=== PATIENT | female | born 1980 | race Two or more races ===

== ENCOUNTER 2019-02-21 06:13 | Day surgery (SDC) | payer OTHER ==
[2019-02-21] VITALS (12 sets, daily range): BP systolic 101–140; BP diastolic 48–71
[~2019-02-21] VITALS: Ht 175.3 cm; Wt 72.5 kg
[2019-02-21] MEDS ORDERED: NKM (06:52)
[2019-02-21] MEDS ORDERED: ceFAZolin sod 1 GM in NS 55 ML IVPB ONE (07:00)
[2019-02-21] MEDS ORDERED: Iothalamate Meglumine 60% 30ML INJ ONE (07:13)
[2019-02-21 07:14] LABS: BASOPHILS % (AUTO) 1.3 % (0.0-2.0); EOSINOPHILS % (AUTO) 2.8 % (0.0-3.0); HEMATOCRIT 44.8 % (37.0-47.0); HEMOGLOBIN 14.9 G/DL (12.0-16.0); LYMPHOCYTES % (AUTO) 27.3 % (20.0-45.0); MEAN CORPUSCULAR VOLUME 86 FL (80-99); MONOCYTES % (AUTO) 9.8 % (1.0-10.0); NEUTROPHILS % (AUTO) 58.9 % (45.0-75.0); PLATELET COUNT 214 K/UL (150-450); RED BLOOD COUNT 5.24 M/UL (4.20-5.40); RED CELL DISTRIBUTION WIDTH 11.9 % (11.6-14.8); WHITE BLOOD COUNT 4.7 K/UL (4.8-10.8)
[2019-02-21] MEDS ORDERED: fentaNYL 100 mcg/2 mL IV ONE (07:20)
[2019-02-21] MEDS ORDERED: Midazolam 2mg/2ml Inj ONE (07:20)
[2019-02-21] MEDS ORDERED: Lidocaine 1% MPF 10mg/ml 5ml ONE (07:21)
[2019-02-21] MEDS ORDERED: Ketorolac 30mg Inj ONE (07:21)
[2019-02-21] MEDS ORDERED: Propofol 200mg/20ml IV ONE (07:21)
[2019-02-21 07:30] LABS: ANION GAP 10 mmol/L (5-15); BLOOD UREA NITROGEN 18 mg/dL (7-18); CALCIUM 9.6 MG/DL (8.5-10.1); CARBON DIOXIDE 25 MMOL/L (21-32); CHLORIDE 103 MMOL/L (98-107); CREATININE 0.9 MG/DL (0.55-1.30); POTASSIUM 3.6 MMOL/L (3.5-5.1); SODIUM 138 MMOL/L (136-145)
[2019-02-21] MEDS ORDERED: Zemuron 50mg/5ml Inj IV ONE (07:32)
[2019-02-21] MEDS ORDERED: Succinylcholine 20mg/ml 10ml vial ONE (07:33)
[2019-02-21 07:35] LABS: ALANINE AMINOTRANSFERASE 21 U/L (12-78); ALBUMIN 3.9 G/DL (3.4-5.0); ALBUMIN/GLOBULIN RATIO 0.9 (1.0-2.7); ALKALINE PHOSPHATASE 66 U/L (46-116); ASPARTATE AMINO TRANSFERASE 28 U/L (15-37); BILIRUBIN,TOTAL 0.5 MG/DL (0.2-1.0)
--- NOTE | 2019-02-21 07:46 | Pre-Procedure Note/Attestation ---
Pre-Procedure Note/Attestation Complete Prior to Procedure Planned Procedure: not applicable Procedure Narrative: Laparoscopic Cholecystectomy possible open cholecystectomy Indications for Procedure Pre-Operative Diagnosis: Cholecystitis & cholelithiasis Attestation I attest that I discussed the nature of the procedure; its benefits; risks and complications; and alternatives (and the risks and benefits of such alternatives ), prior to the procedure, with the patient (or the patient's legal customer care representative). I attest that, if there was a reasonable possibility of needing a blood transfusion, the patient (or the patient's legal customer care representative) was given the [facility] standardized written summary, pursuant to the [employer] [place] Blood Safety Act ([place] Health and Safety Code # 1645, as amended). I attest that I re-evaluated the patient just prior to the surgery and that there has been no change in the patient's H&P, except as documented below: Jenna Miller MD Feb 21, 2019 07:46
[2019-02-21] MEDS ORDERED: LR 1000ml ONE (08:00)
[2019-02-21] MEDS ORDERED: NS Irrig 1000ml IRRIG ONE (08:00)
[2019-02-21] MEDS ORDERED: Sterile Water Irrig 1000ml IRRIG ONE (08:00)
[2019-02-21] MEDS ORDERED: Morphine Sulfate 10mg/ml Inj ONE (08:22)
[2019-02-21] MEDS ORDERED: Sodium Chloride 10ml vial INJ ONE (08:23)
[2019-02-21] MEDS ORDERED: Neostigmine 1mg/ml 10ml Inj ONE (08:23)
[2019-02-21] MEDS ORDERED: Glycopyrrolate 0.2mg/ml 1ml Vial ONE (08:23)
--- NOTE | 2019-02-21 08:32 | Anethesia Preoperative Eval ---
Anesthesia Pre-op PMH/ROS General Date of Evaluation: Feb 21, 2019 Time of Evaluation: 07:12 Anesthesiologist: Gianna ASA Score: ASA 2 Mallampati Score Class I : Soft palate, uvula, fauces, pillars visible Class II: Soft palate, uvula, fauces visible Class III: Soft palate, base of uvula visible Class IV: Only hard plate visible Mallampati Classification: Class II Surgeon: Angela Diagnosis: Symptomatic cholelithiasis Surgical Procedure: Cholecystectomy Anesthesia History: none Family History: no anesthesia problems Allergies: Coded Allergies: No Known Allergies (Unverified , 02/18/19) Medications: see eMAR Patient NPO?: Yes Past Medical History Cardiovascular: Denies: HTN, CAD, IA, valve dz, arrhythmia, other Pulmonary: Denies: asthma, COPD, ESTEBAN, other Gastrointestinal/Genitourinary: Reports: GERD, other - recurrent abdominal pain ; Denies: CRI, ESRD Neurologic/Psychiatric: Denies: dementia, CVA, depression/anxiety, TIA, other Endocrine: Denies: DM, hypothyroidism, steroids, other HEENT: Denies: cataract (L), cataract (R), glaucoma, [place] (L), [place] (R), other Hematology/Immune: Denies: anemia, DVT, bleeding disorder, other Musculoskeletal/Integumentary: Denies: OA, RA, DJD, DDD, edema, other PMH Narrative: as above PSxH Narrative: Appendectomy Anesthesia Pre-op Phys. Exam Physician Exam Last Vital Signs Date Time Temp Pulse Resp B/P (MAP) Pulse Ox O2 Delivery O2 Flow Rate FiO2 02/21/19 06:45 97.2 89 18 128/70 99 Room Air Constitutional: NAD Neurologic: CN 2-12 intact Cardiovascular: RRR, no M/R/G Respiratory: CTA Gastrointestinal: other - slightly tender Airway Exam Mallampati Score: Class II MO: full Neck: flexible ROM: full Teeth: intact Dentures: no upper, no lower Anesthesia Pre-op A/P Labs Hematology Test 02/21/19 06:40 White Blood Count 4.7 K/UL (4.8-10.8) L Red Blood Count 5.24 M/UL (4.20-5.40) Hemoglobin 14.9 G/DL (12.0-16.0) Hematocrit 44.8 % (37.0-47.0) Mean Corpuscular Volume 86 FL (80-99) Mean Corpuscular Hemoglobin 28.5 PG (27.0-31.0) Mean Corpuscular Hemoglobin Concent 33.3 G/DL (32.0-36.0) Red Cell Distribution Width 11.9 % (11.6-14.8) Platelet Count 214 K/UL (150-450) Mean Platelet Volume 8.2 FL (6.5-10.1) Neutrophils (%) (Auto) 58.9 % (45.0-75.0) Lymphocytes (%) (Auto) 27.3 % (20.0-45.0) Monocytes (%) (Auto) 9.8 % (1.0-10.0) Eosinophils (%) (Auto) 2.8 % (0.0-3.0) Basophils (%) (Auto) 1.3 % (0.0-2.0) Coagulation Test 02/21/19 06:40 Prothrombin Time 10.5 SEC (9.30-11.50) Prothromb Time International Ratio 1.0 (0.9-1.1) Activated Partial Thromboplast Time 29 SEC (23-33) Chemistry Test 02/21/19 06:40 Sodium Level 138 MMOL/L (136-145) Potassium Level 3.6 MMOL/L (3.5-5.1) Chloride Level 103 MMOL/L (98-107) Carbon Dioxide Level 25 MMOL/L (21-32) Anion Gap 10 mmol/L (5-15) Blood Urea Nitrogen 18 mg/dL (7-18) Creatinine 0.9 MG/DL (0.55-1.30) Estimat Glomerular Filtration Rate > 60 mL/min (>60) Glucose Level 91 MG/DL (74-106) Calcium Level 9.6 MG/DL (8.5-10.1) Total Bilirubin 0.5 MG/DL (0.2-1.0) Aspartate Amino Transf (AST/SGOT) 28 U/L (15-37) Alanine Aminotransferase (ALT/SGPT) 21 U/L (12-78) Alkaline Phosphatase 66 U/L (46-116) Total Protein 8.2 G/DL (6.4-8.2) Albumin 3.9 G/DL (3.4-5.0) Globulin 4.3 g/dL Albumin/Globulin Ratio 0.9 (1.0-2.7) L Urine Test Test 02/21/19 06:30 Urine HCG, Qualitative Negative (NEGATIVE) Risk Assessment & Plan Assessment: ASA 2 Plan: GA with ETT Status Change Before Surgery: No Pre-Antibiotics Drug: Ancef 1gr Given Within 1 Hr of Incision: Yes Time Given: 08:10 Eliud Katz MD Feb 21, 2019 08:32
[2019-02-21] MEDS ORDERED: Meperidine 50mg/ml Inj(FOR RIGORS ONLY) IV PRN (08:45)
[2019-02-21] MEDS ORDERED: Ketorolac 30mg Inj IV PRN (08:45)
[2019-02-21] MEDS ORDERED: Metoclopramide 10mg/2ml Inj IVP PRN (08:45)
[2019-02-21] MEDS ORDERED: DiphenhydrAMINE 50mg/ml Inj IVP PRN (08:45)
--- NOTE | 2019-02-21 09:05 | Brief Operative Note ---
Immediate Post Operative Note Operative Note Pre-op Diagnosis: Cholecystitis & cholelithiasis Procedure: Laparoscopic cholecystectomy Post-op Diagnosis: same as pre-op Findings: consistent w/pre-op dx studies Surgeon: Commercial Finance Manager: none Anesthesiologist: Dr. Katz Anesthesia: general Specimen: yes Complications: none Condition: stable Fluids: per anesthesiologist Estimated Blood Loss: minimal Drains: none Implant(s) used?: No Jenna Miller MD Feb 21, 2019 09:04
--- NOTE | 2019-02-21 09:07 | Discharge Instructions ---
Discharge Instructions Discharge Instructions Follow up with: my office in one week Call MD/Return to Hospital if: vomiting Diet: clear liquid Additional Diet Information: low fat regular diet in 2 days Resume Normal Activity?: Yes Activity: as tolerated For Surgical Patients Dressing Care: other - will be removed by surgeon May shower: Yes For Congestive Heart Failure Reminder Report to your physician any weight gain of 5 pounds or more in one week. Jenna Miller MD Feb 21, 2019 09:07
--- NOTE | 2019-02-21 09:20 | Immediate Post-Op Evaluation ---
Immediate Post-Op Evalulation Immediate Post-Op Evalulation Procedure: Laparoscopic cholecystectomy Date of Evaluation: Feb 21, 2019 Time of Evaluation: 09:19 IV Fluids: 1200 Blood Products: none Estimated Blood Loss: min Urinary Output: none Blood Pressure Systolic: 132 Blood Pressure Diastolic: 71 Pulse Rate: 68 Respiratory Rate: 20 O2 Sat by Pulse Oximetry: 98 Temperature (Fahrenheit): 97.5 Pain Score (1-10): 2 Nausea: No Vomiting: No Complications none Patient Status: awake, patent, extubated, none Hydration Status: adequate Eliud Katz MD Feb 21, 2019 09:20
[2019-02-21] MEDS ORDERED: Midazolam 2mg/2ml Inj IVP ONE (09:30)
--- NOTE | 2019-02-21 11:58 | 48 Hour Post Anesthesia Eval ---
Post Anesthesia Evaluation Procedure: Laparoscopic cholecystectomy Date of Evaluation: Feb 21, 2019 Time of Evaluation: 11:57 Blood Pressure Systolic: 109 0: 74 Pulse Rate: 68 Respiratory Rate: 20 Temperature (Fahrenheit): 97.6 O2 Sat by Pulse Oximetry: 98 Airway: patent Nausea: No Vomiting: No Pain Intensity: 3 Hydration Status: adequate Cardiopulmonary Status: stable Mental Status/LOC: patient returned to baseline Follow-up Care/Observations: n/a Post-Anesthesia Complications: none Follow-up care needed: ready to discharge Eliud Katz MD Feb 21, 2019 11:58
--- NOTE | 2019-02-21 16:15 | Operative Note - Dictated ---
DATE OF OPERATION: 02/21/2019 PREOPERATIVE DIAGNOSIS: Cholecystitis and cholelithiasis. POSTOPERATIVE DIAGNOSIS: Cholecystitis and cholelithiasis. OPERATION: Laparoscopic cholecystectomy. COMPLICATIONS: None. SURGEON: Jenna Miller M.D. DIRECTOR [employer]: None. ANESTHESIA: General with endotracheal tube. ANESTHESIOLOGIST: Eliud Katz M.D. INDICATION: This is a 39-year-old female, who presented with right upper quadrant pain for about five to six months. Physical examination showed discomfort at the right upper quadrant and ultrasound showed cholelithiasis. DESCRIPTION OF PROCEDURE: The patient was placed supine on the operating table and after general anesthesia with endotracheal tube, the abdomen was properly prepped and draped. Initially, a small incision was given below the umbilicus through which a Veress needle was introduced into the intraperitoneal cavity. This cavity was insufflated up to 15 mmHg and then the Veress needle was removed and a 5 mm trocar was placed in the intraperitoneal cavity through the incision below the umbilicus. Under direct vision, a working trocar was placed at the epigastrium and 5 mm trocars were placed at right upper quadrant and right flank. Initially a rapid exploration was performed, which showed the diaphragms to be normal. The part of the stomach, which could be seen, was normal. The gallbladder showed signs of chronic cholecystitis and had adhesion of the omentum at the lower half. The fundus of the gallbladder was grasped with a grasper from the trocar site at the right flank. The fundus was retracted cephalad and lateral. Initially, the adhesion of the omentum over the gallbladder was released with the help of the Bovie and blunt dissection. Then after that, the neck of the gallbladder was grasped with another grasper and Calot triangle was exposed. Blunt dissection was performed and initially the cystic artery was identified, doubly ligated with a hemoclip and transected and then the cystic duct was identified, doubly ligated with a hemoclip and was transected. After this, the gallbladder was gradually released from the gallbladder bed from the neck towards the fundus. The gallbladder was completely removed from the gallbladder bed and then it was removed from the intraperitoneal cavity through the incision at the epigastrium with the help of Endopouch. After removal of the gallbladder, the gallbladder bed was completely cauterized with the help of the Bovie and the right upper quadrant cavity was thoroughly irrigated with antibiotic solution. Another exploration was performed and there was no bleeding or complication. The trocars were removed under direct vision. The incisions were infiltrated with total of 30 mL of Marcaine 0.25%. The subcutaneous skin tissue was approximated with 4-0 chromic and the skin incisions were approximated with running subcuticular suture of 4-0 chromic. The patient tolerated the procedure very well and was transferred to recovery room in stable condition and extubated. COUNTS: Sponge and needle count correct. ESTIMATED BLOOD LOSS: 5 mL. CONDITION: Condition of the patient at the end of procedure is stable. Jenna Miller M.D. DR: KEATON JOB#: [id number] CC:
== END 2019-02-21 14:05 | disposition home or self-care (01) ==
LOC: SUR 06:13 → EDSEX 07:30 → SUR 14:05
DX: K80.10 Calculus of gallbladder with chronic cholecystitis without obstruction (principal); K21.9 Gastro-esophageal reflux disease without esophagitis; Z90.89 Acquired absence of other organs
CPT/HCPCS: 36415; 47562; 80053; 81025; 85025; 85610; 85730; J0330; J0690; J1885; J2175; J2250; J2270; J2405; J2704; J2710; J2765; J3010; 94003; 94150